=== PATIENT | male | born 1965 | race Caucasian/White ===

== ENCOUNTER 2018-02-12 14:31 | Emergency (ER) | payer BC, OTHER ==
[2018-02-12] MEDS ORDERED: NS 0.9% 1000 ML* 1,000 ML IV ONE (14:49)
[2018-02-12] MEDS ORDERED: EPINEPHRINE 1 MG/ML 1 ML VIAL IM ONE (14:50)
[2018-02-12] MEDS ORDERED: methylPREDNISolone 125 MG* 2 ML VIAL IV ONE (14:50)
[2018-02-12] MEDS ORDERED: Famotidine IV* 10 MG/ML 2 ML (20 mg) IV SLOW PU ONE (14:51)
[2018-02-12] MEDS ORDERED: diPHENhydraMINE IV* 50 MG/ML 1 ml VIAL (BENADRYL) IV ONE (14:51)
--- NOTE | 2018-02-12 15:40 | UC ---
Allergic Reaction HPI - HPI Summary HPI Summary: patient is allergic to bees he was stung on the tongue by a beer that flew in to his beer---tongue is swollen---airway is open no wheezing or strider---has an epipen but did not know how to use it-- (on examination it was found to have in 2016) - History of Current Complaint Chief Complaint: UCAllergicReaction Stated Complaint: BEE STING/SWOLLEN TONGUE Time Seen by Provider: 02/12/18 14:40 Hx Obtained From: Patient Onset/Duration: Sudden Onset Pain Intensity: 7 Pain Scale Used: 0-10 Numeric Location: Discrete @ - tongue Character: Swelling Alleviating Factor(s): Nothing Associated Signs And Symptoms: Positive: Other: - tongue feels large - Related Hx Possible Reaction To: Insect - Allergies/Home Medications Allergies/Adverse Reactions: Allergies Allergy/AdvReac Type Severity Reaction Status Date / Time hydrocodone Allergy Itching Verified 02/12/18 14:42 oxycodone Allergy Itching Verified 02/12/18 14:42 clarithromycin [From Biaxin] AdvReac Vomiting Verified 02/12/18 14:42 Home Medications: Home Medications Levocetirizine Dihydrochloride 5 mg PO DAILY 02/12/18 [History Confirmed ] Lisinopril 10 mg PO DAILY 02/12/18 [History Confirmed 02/12/18] Simvastatin 20 mg PO DAILY 02/12/18 [History Confirmed 02/12/18] Testosterone Gel 25 mg (Nf) [Testosterone Gel 25 mg/2.5 g] 25 mg TOPICAL DAILY 02/12/18 [History Confirmed 02/12/18] traMADol TAB* [Ultram*] 50 mg PO Q6HR PRN 02/12/18 [History Confirmed 02/12/18] PMH/Surg Hx/FS Hx/Imm Hx Previously Healthy: No Endocrine History: Dyslipidemia Cardiovascular History: Hypertension - Surgical History Surgical History: Yes Surgery Procedure, Year, and Place: R rotator cuff. Left elbow. Left knee x 2. Right knee x 4. b/l mastectomy as a child - Family History Known Family History: Positive: None - Social History Occupation: Employed Part-time, Retired Lives: Alone Alcohol Use: Daily Substance Use Type: None Smoking Status (MU): Never Smoked Tobacco Review of Systems Constitutional: Negative Skin: Negative Eyes: Negative ENT: Negative, Other - tounge swollen, mouth feels , full voice is distorted Respiratory: Negative Cardiovascular: Negative Gastrointestinal: Negative Genitourinary: Negative Motor: Negative Neurovascular: Negative Musculoskeletal: Negative Neurological: Negative Psychological: Negative Is Patient Immunocompromised?: No All Other Systems Reviewed And Are Negative: Yes Physical Exam Triage Information Reviewed: Yes Appearance: Well-Appearing, No Pain Distress - mod, Pain Distress - mod Vital Signs: Initial Vital Signs Temp 97.4 F 02/12/18 14:46 Pulse 61 02/12/18 14:46 Resp 20 02/12/18 14:46 BP 143/75 02/12/18 14:46 Pulse Ox 97 02/12/18 14:46 Vital Signs Reviewed: Yes Eye Exam: Normal Eyes: Positive: Conjunctiva Clear ENT Exam: Normal ENT: Positive: Normal ENT inspection, Hearing grossly normal, Pharynx normal, TMs normal, Muffled voice, Uvula midline, Other - tongue is swollen. Negative: Nasal congestion, Trismus, Hoarse voice, Dental tenderness, Sinus tenderness Dental Exam: Normal Neck exam: Normal Neck: Positive: Supple, Nontender Respiratory Exam: Normal Respiratory: Positive: Chest non-tender, Lungs clear, Normal breath sounds, No respiratory distress, No accessory muscle use Cardiovascular Exam: Normal Cardiovascular: Positive: RRR, No Murmur, Pulses Normal, Brisk Capillary Refill Abdominal Exam: Normal Abdomen Description: Positive: Nontender, No Organomegaly, Soft. Negative: CVA Tenderness (R), CVA Tenderness (L) Bowel Sounds: Positive: Present Musculoskeletal Exam: Normal Musculoskeletal: Positive: Strength Intact, ROM Intact, No Edema Neurological Exam: Normal Neurological: Positive: Alert, Muscle Tone Normal Psychological Exam: Normal Psychological: Positive: Normal Response To Family Skin Exam: Normal Re-Evaluation - Re-Evaluation First Eval Change: Improved - swelling going down in tongue voice is returning to normal Second Eval Change: Improved - voice completely normal, patient has no rash is sleepy-- ambulated to BR to Void, lungs clear respirations easy and unlabored, feels better-- Third Eval Change: Improved - no c/o feeling better no swelling Fourth Eval Change: Improved - resting comfortable all symptoms resoved no c/o Allergic Reaction Course/Dx - Course Course Of Treatment: refill epi pen, benadryl, prednisone, pepcid - Differential Dx/Diagnosis Provider Diagnoses: bee sting tongue, allergic reaction Discharge - Sign-Out/Discharge Documenting (check all that apply): Discharge/Admit/Transfer - Discharge Plan Condition: Stable Disposition: HOME Prescriptions: EPINEPHrine [Epipen 2-Thien] 0.3 mg IM SEE INSTRUCTIONS #1 inj Famotidine TAB 40 MG(NF) [Pepcid TAB 40 MG(NF)] 40 mg PO DAILY #5 tab predniSONE TAB* [Deltasone TAB*] 50 mg PO DAILY #4 tab Patient Education Materials: Epinephrine (By injection), Anaphylaxis (ED), Cold Compress or Soak (ED), Insect Bite or Sting (ED), Hypertension (ED) Referrals: AMANDA Patel [Medical Doctor] - 1 Week - Billing Disposition and Condition Condition: STABLE Disposition: Home
[2018-02-12 16:57] VITALS: BP 119/66
== END 2018-02-12 17:25 | disposition home or self-care (01) ==
LOC: UCCORT 14:31
DX: T63.441A Toxic effect of venom of bees, accidental (unintentional), initial encounter (principal); R22.0 Localized swelling, mass and lump, head; Y92.9 Unspecified place or not applicable; Z88.1 Allergy status to other antibiotic agents; Z88.5 Allergy status to narcotic agent; I10 Essential (primary) hypertension; E78.5 Hyperlipidemia, unspecified
CPT/HCPCS: 96361; 96372; 96374; 96375; 99213; G0463; J1200; J2930

== ENCOUNTER 2018-03-23 12:34 | Emergency (ER) | payer BC ==
[2018-03-23] MEDS ORDERED: predniSONE TAB* 20 MG PO ONE (12:42)
[2018-03-23] MEDS ORDERED: Famotidine TAB* 20 MG PO ONE (12:42)
[2018-03-23] MEDS ORDERED: diPHENhydraMINE PO* 50 MG PO ONE (12:42)
[2018-03-23] MEDS ORDERED: Hydrocortisone 1% CREAM* 30 GM TUBE TOPICAL ONE (12:47)
--- NOTE | 2018-03-23 12:47 | UC ---
Bite Injury/Animal HPI - HPI Summary HPI Summary: 53-year-old man presents 20 minutes after being stung by a wasp in the left arm. He states he was working outside planing wood when he was stung in the left arm. He was sweating at the time but has not experienced any symptoms other than local redness, swelling since then. He denies any throat tightness, difficulty breathing/wheezing, lightheadedness. He states he was here previously after he was stung in the tongue and had a lot of swelling there. He does carry an EpiPen for that reason. He previously was bit in the right leg but only had local symptoms. He has no definite history for anaphylaxis. There is no family history for anaphylaxis either. 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 Left elbow. Left knee x 2. Right knee x 4. b/l mastectomy as a child - Family History Known Family History: Positive: None, Other - No known severe allergy or anaphylaxis - Social History Alcohol Use: Daily Substance Use Type: None Smoking Status (MU): Never Smoked Tobacco Review of Systems Constitutional: Negative Skin: Other - Redness, swelling left arm Eyes: Negative ENT: Other - No sore throat or tightness Respiratory: Negative Cardiovascular: Negative Neurovascular: Negative Neurological: Negative All Other Systems Reviewed And Are Negative: Yes Physical Exam Triage Information Reviewed: Yes Appearance: Well-Appearing, No Pain Distress, Well-Nourished, Other: - Light diaphoresis Vital Signs Reviewed: Yes Eye Exam: Normal Eyes: Positive: Conjunctiva Clear ENT: Positive: Normal ENT inspection, Other - No lip, tongue or uvular edema Neck: Positive: Supple Respiratory: Positive: Lungs clear, Normal breath sounds, No respiratory distress Cardiovascular: Positive: RRR, Brisk Capillary Refill Musculoskeletal Exam: Normal Neurological Exam: Normal Skin Exam: Other - 3.5 cm area of erythema and mild swelling in the left mid lateral upper arm Bite Injury Course/Dx - Course Course Of Treatment: Patient with local reaction only wasp sting. Previously had more serious symptoms after being stung in the tongue. No definite history for anaphylaxis. Presently has an EpiPen prescribed. Oral steroid, H1, H2 blockers. - Differential Dx/Diagnosis Differential Diagnosis/HQI/PQRI: Other - bee sting -- local reaction vs anaphylaxis Provider Diagnoses: 1. Bee Sting with local reaction. 2. Elevated blood pressure Discharge - Sign-Out/Discharge Documenting (check all that apply): Patient Departure - Discharge Plan Condition: Improved Disposition: HOME Prescriptions: predniSONE TAB* [Deltasone TAB*] 50 mg PO DAILY #3 tab Patient Education Materials: Insect Bite or Sting (ED) Referrals: Minna Gregorio [Nurse Practitioner] - Additional Instructions: Ice, hydrocortisone topically to the area. Benadryl as needed. Return if worse , difficulty breathing, lip or tongue swelling, worse or other concerns. Use EpiPen if you ever experience any severe allergy symptoms and then seek emergency attention. Call to follow-up with your family doctor. ] Your blood pressure was elevated today. Have your doctor recheck this within a week. - Billing Disposition and Condition Condition: IMPROVED Disposition: Home
[2018-03-23 12:56] VITALS: BP 147/79
== END 2018-03-23 13:14 | disposition home or self-care (01) ==
LOC: UCCORT 12:34
DX: T63.441A Toxic effect of venom of bees, accidental (unintentional), initial encounter (principal); Y92.9 Unspecified place or not applicable; Z88.1 Allergy status to other antibiotic agents; Z88.6 Allergy status to analgesic agent; I10 Essential (primary) hypertension
CPT/HCPCS: 99213; A9270-GY; G0463; J7512